=== PATIENT | female | born 2000 | race Caucasian/White ===

== ENCOUNTER 2023-01-25 12:58 | Emergency (ER) | payer OTHER ==
[~2023-01-25] VITALS: Ht 165.1 cm; Wt 81.7 kg
[2023-01-25 13:11] VITALS: BP 124/97
[2023-01-25 13:45] LABS: BASOPHILS ABSOLUTE AUTO 0.03 K/mm3 (0.00-0.23); BASOPHILS PERCENT AUTO 0 % (0-2); EOSINOPHILS ABSOLUTE AUTO 0.14 K/mm3 (0.00-0.68); EOSINOPHILS PERCENT AUTO 2 % (0-6); Hematocrit 36.5 % (33.0-51.0); Hemoglobin 11.8 g/dL (11.5-16.0); IMMATURE GRAN ABSOLUTE AUTO 0.01 K/mm3 (0.00-0.10); IMMATURE GRAN PERCENT AUTO 0 % (0-1); LYMPHOCYTES ABSOLUTE AUTO 2.06 K/mm3 (0.84-5.20); LYMPHOCYTES PERCENT AUTO 28 % (21-46); MONOCYTES ABSOLUTE AUTO 0.61 K/mm3 (0.16-1.47); MONOCYTES PERCENT AUTO 8 % (4-13); Mean Corpuscular HGB Conc 32.3 g/dL (31.5-36.5); Mean Corpuscular Volume 81 fL (80-100); Mean Platelet Volume 10.8 fL (9.1-12.4); NEUTROPHILS ABSOLUTE AUTO 4.63 K/mm3 (1.96-9.15); NEUTROPHILS PERCENT AUTO 62 % (41-73); Platelet Count 300 K/mm3 (150-400); RDW Coefficient Variation 15.8 % (11.7-14.2); RDW Standard Deviation 46.1 fL (35.1-46.3); Red Blood Cell Count 4.53 M/mm3 (3.80-5.20); White Blood Cell Count 7.48 K/mm3 (4.00-11.30)
[2023-01-25 14:29] LABS: Albumin, Blood 3.8 g/dL (3.4-5.0); Albumin/Globulin Ratio 0.9 (0.8-1.8); Bilirubin, Total 0.4 mg/dL (0.1-1.0); Bun/Creatinine Ratio 11.7 (12.0-20.0); Creatinine, Blood 0.68 mg/dL (0.40-1.00); Globulin, Blood 4.1 g/dL (2.2-4.0); Potassium, Blood 3.8 mmol/L (3.5-5.5); Total Protein, Blood 7.9 g/dL (6.4-8.2)
== END 2023-01-25 14:11 | disposition left against medical advice (07) ==
LOC: ER 12:58
PROVIDERS: Student in an Organized Health Care Education/Training Program
DX: O20.9 Hemorrhage in early pregnancy, unspecified (principal); Z3A.08 8 weeks gestation of pregnancy; Z53.21 Procedure and treatment not carried out due to patient leaving prior to being seen by health care provider
CPT/HCPCS: 76801; 76817; 80053; 84702; 85025; 86900; 86901; 99282-25

== ENCOUNTER 2023-09-12 07:08 | Emergency (ER) | payer BC, OTHER ==
[~2023-09-12] VITALS: Ht 165.1 cm; Wt 86.2 kg
[2023-09-12 07:30] VITALS: BP 124/62
[2023-09-12] MEDS ORDERED: PRENATAL TABLE1 EAC2 PO (07:38)
== END 2023-09-12 08:20 | disposition left against medical advice (07) ==
LOC: ER 07:08
DX: O20.9 Hemorrhage in early pregnancy, unspecified (principal); Z53.29 Procedure and treatment not carried out because of patient's decision for other reasons; Z3A.14 14 weeks gestation of pregnancy
CPT/HCPCS: 76815; 76817; 99281

== ENCOUNTER 2024-03-12 00:08 | Inpatient (IN) | payer BC, OTHER ==
[2024-03-12] VITALS (26 sets, daily range): BP systolic 101–129; BP diastolic 56–83
[~2024-03-12] VITALS: Ht 162.6 cm; Wt 96.0 kg
[~2024-03-12 00:08] MED LIST: PRENATAL TABLE1 EAC2 PO
[2024-03-12] MEDS ORDERED: Misoprostol 200 MCG Tab PR PRN ×2 (00:45→06:45)
[2024-03-12] MEDS ORDERED: Acetaminophen 500 MG Tab PO PRN (00:45)
[2024-03-12] MEDS ORDERED: Oxytocin 10 Unit / ML Vial IM PRN (00:45)
[2024-03-12] MEDS ORDERED: Lactated Ringer's 1,000 ML IV PRN (00:45)
[2024-03-12] MEDS ORDERED: Carboprost Tromethamine 250 MCG/ML 1ML Amp IM PRN (00:45)
[2024-03-12] MEDS ORDERED: OXYTOCIN/RINGER'S LACTATE 500 ML IV PRN (00:45)
[2024-03-12] MEDS ORDERED: FentaNYL Citrate 50 MCG/ML 2 ML Injection IV PRN (00:45)
[2024-03-12] MEDS ORDERED: Ondansetron HCl 2 MG / ML 2ML Vial IV PRN (00:45)
[2024-03-12] MEDS ORDERED: Methylergonovine Maleate 0.2MG / ML 1ML Amp IM PRN ×2 (00:45→06:40)
[2024-03-12] MEDS ORDERED: Misoprostol 200 MCG Tab BC PRN (00:45)
[2024-03-12] MEDS ORDERED: Tranexamic Acid 100 ML IV SCH (00:45)
[2024-03-12] MEDS ORDERED: Calcium Carbonate 500 MG Tab Chew PO PRN (00:50)
[2024-03-12] MEDS ORDERED: ePHEDrine Sulfate 50 MG/ML 1ML Injection XX PRN (01:35)
[2024-03-12] MEDS ORDERED: FentaNYL 2mcg/ml-Bup 0.1% Epd 250 ML EPI PRN (01:35)
[2024-03-12] MEDS ORDERED: Lactated Ringer's 1,000 ML IV SCH ×3 (01:35→06:40)
[2024-03-12 01:38] LABS: BASOPHILS ABSOLUTE AUTO 0.04 K/mm3 (0.00-0.23); BASOPHILS PERCENT AUTO 0 % (0-2); EOSINOPHILS ABSOLUTE AUTO 0.09 K/mm3 (0.00-0.68); EOSINOPHILS PERCENT AUTO 1 % (0-6); Hematocrit 30.8 % (33.0-51.0); Hemoglobin 9.5 g/dL (11.5-16.0); IMMATURE GRAN ABSOLUTE AUTO 0.05 K/mm3 (0.00-0.10); IMMATURE GRAN PERCENT AUTO 0 % (0-1); LYMPHOCYTES ABSOLUTE AUTO 1.43 K/mm3 (0.84-5.20); LYMPHOCYTES PERCENT AUTO 11 % (21-46); MONOCYTES ABSOLUTE AUTO 0.75 K/mm3 (0.16-1.47); MONOCYTES PERCENT AUTO 6 % (4-13); Mean Corpuscular HGB 22.5 pg (26.0-34.0); Mean Corpuscular HGB Conc 30.8 g/dL (31.5-36.5); Mean Corpuscular Volume 73 fL (80-100); Mean Platelet Volume 10.7 fL (9.1-12.4); NEUTROPHILS ABSOLUTE AUTO 11.16 K/mm3 (1.96-9.15); NEUTROPHILS PERCENT AUTO 83 % (41-73); Platelet Count 234 K/mm3 (150-400); RDW Coefficient Variation 16.6 % (11.7-14.2); RDW Standard Deviation 42.9 fL (35.1-46.3); Red Blood Cell Count 4.23 M/mm3 (3.80-5.20); White Blood Cell Count 13.52 K/mm3 (4.00-11.30)
[2024-03-12] MEDS ORDERED: OXYTOCIN/RINGER'S LACTATE 500 ML IV SCH (06:45)
[2024-03-12] MEDS ORDERED: Acetaminophen 325 MG TABLET PO PRN (06:45)
[2024-03-12] MEDS ORDERED: Witch Hazel/Glycerin PADS TOP PRN (06:45)
[2024-03-12] MEDS ORDERED: Ibuprofen 400 MG Tab PO PRN (06:45)
[2024-03-12] MEDS ORDERED: Benzocaine Topical Anesthetic Spray 60GM TOP PRN (06:50)
[2024-03-12] MEDS ORDERED: Docusate Sodium 100 MG Cap PO PRN (06:50)
[2024-03-12] MEDS ORDERED: Rho(D) Immune Globulin 300 MCG / SYR IM SCH (06:50)
[2024-03-12] MEDS ORDERED: FLU VACC TS2024-25(6MOS UP)/PF 45 MCG/0.5 ML SYRINGE IM SCH (06:50)
[2024-03-12] MEDS ORDERED: Benzocaine/Benzethon Topical Anesthetic Spray 78GM TOP PRN (07:15)
--- NOTE | 2024-03-12 08:35 | NUR ---
Assumed care from Jose Carlos Bowman RN. Pt resting in bed, would like to rest some prior to showering. Educated pt not to get up without RN assistance. Will call when awake.
[2024-03-12] MEDS ORDERED: Prenatal Vit/FE Fumarate/FA 1 Tab PO SCH (09:00)
--- NOTE | 2024-03-12 11:05 | NUR ---
Resting in bed, just finished feeding nb. Denies needs at this time.
[2024-03-12] MEDS ORDERED: Ketorolac Tromethamine 30mg Vial IV SCH (12:00)
[2024-03-13 00:31] VITALS: BP 109/59
[2024-03-13 05:08] VITALS: BP 95/51
[2024-03-13 07:07] LABS: BASOPHILS ABSOLUTE AUTO 0.06 K/mm3 (0.00-0.23); BASOPHILS PERCENT AUTO 1 % (0-2); EOSINOPHILS ABSOLUTE AUTO 0.26 K/mm3 (0.00-0.68); EOSINOPHILS PERCENT AUTO 3 % (0-6); Hematocrit 28.3 % (33.0-51.0); Hemoglobin 8.8 g/dL (11.5-16.0); IMMATURE GRAN ABSOLUTE AUTO 0.03 K/mm3 (0.00-0.10); IMMATURE GRAN PERCENT AUTO 0 % (0-1); LYMPHOCYTES ABSOLUTE AUTO 2.09 K/mm3 (0.84-5.20); LYMPHOCYTES PERCENT AUTO 20 % (21-46); MONOCYTES PERCENT AUTO 10 % (4-13); Mean Corpuscular HGB 22.4 pg (26.0-34.0); Mean Corpuscular HGB Conc 31.1 g/dL (31.5-36.5); Mean Corpuscular Volume 72 fL (80-100); Mean Platelet Volume 11.1 fL (9.1-12.4); NEUTROPHILS ABSOLUTE AUTO 7.14 K/mm3 (1.96-9.15); NEUTROPHILS PERCENT AUTO 67 % (41-73); Platelet Count 243 K/mm3 (150-400); RDW Coefficient Variation 16.9 % (11.7-14.2); Red Blood Cell Count 3.92 M/mm3 (3.80-5.20); White Blood Cell Count 10.58 K/mm3 (4.00-11.30)
[2024-03-13 08:14] VITALS: BP 121/76
[2024-03-13] MEDS ORDERED: IBUP800 PO (09:36)
[2024-03-13] MEDS ORDERED: DOCU100 PO (09:36)
[2024-03-13 11:56] VITALS: BP 122/68
--- NOTE | 2024-03-13 12:00 | NUR ---
No acute changes t/o shift. ID bands matched w/nb and verification form. Pt denies additional questions/concerns. Verbalized understanding of teaching and follow up. Pt d/c'd home ambulatory to care of SO.
--- NOTE | 2024-03-14 13:24 | NUR ---
HAD PPFU SCHEDULED TODAY 03/14 AT 1300 - CALLED PATIENT [id number] NOT GOING TO MAKE IT RESCHEDULED TO 03/17 @ 1400
== END 2024-03-13 12:10 | disposition home or self-care (01) | DRG 807 ==
LOC: OBS 00:08 → ER 00:08 → OBS 00:12 → BC 00:12 → EDSTATUS 00:59 → ER 01:31 → BC 01:31
PROVIDERS: ADMIT Obstetrics & Gynecology
PROC: 10E0XZZ Delivery of Products of Conception, External Approach (ICD-10-PCS; principal; 2024-03-12)
PROC: 10907ZC Drainage of Amniotic Fluid, Therapeutic from Products of Conception, Via Natural or Artificial Opening (ICD-10-PCS; 2024-03-12)
PROC: 3E0234Z Introduction of Serum, Toxoid and Vaccine into Muscle, Percutaneous Approach (ICD-10-PCS; 2024-03-12)
DX: O48.0 Post-term pregnancy (principal); Z37.0 Single live birth; O62.3 Precipitate labor; Z3A.40 40 weeks gestation of pregnancy; Z91.018 Allergy to other foods; Z79.899 Other long term (current) drug therapy
CPT/HCPCS: 36415; 51702; 59025; 85025; 85460; 86850; 86870; 86900; 86901; 99214; A9270; J1885; J2791; J7120